=== PATIENT | female | born 2000 | race Native Hawaiian/Other Pacific Islander ===

== ENCOUNTER 2020-07-31 09:07 | Outpatient (REF) | payer OTHER, SELFPAY | END 2020-07-31 09:08 | disposition home or self-care (01) | LOC: HO.LAB 09:07 | PROVIDERS: Visit Provider Internal Medicine | DX: Z20.822 Contact with and (suspected) exposure to COVID-19 (principal) | CPT/HCPCS: 36415; C9803; U0003; U0005 ==

== ENCOUNTER 2021-07-11 00:40 | Emergency (ER) | payer OTHER, SELFPAY ==
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
[2021-07-11 00:47] VITALS: BP 112/70; PULSE 72; RESP 16; TEMP 36.6; O2SAT 99; BMI 25.4
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
--- NOTE | 2021-07-11 01:48 | PC.NURSE ---
reviewed discharged instructions with pt. pt verbalized understanding. pt able to ambulate with a steady gait with no sign of distress.
== END 2021-07-11 01:50 | disposition home or self-care (01) ==
PROVIDERS: Emergency Provider Emergency Medicine; PCP Pediatrics
DX: M54.50 Low back pain, unspecified (principal); Z79.899 Other long term (current) drug therapy
CPT/HCPCS: 72100; 99283

== ENCOUNTER 2022-06-27 20:23 | Emergency (ER) | payer OTHER, SELFPAY ==
[2022-06-27 20:25] VITALS: BP 143/73; PULSE 56; RESP 18; TEMP 36.4; O2SAT 98; BMI 32.3
--- NOTE | 2022-06-27 20:25 | ED.EYEPROB ---
HPI - Eye Problem General Chief complaint: Eye Problems Stated complaint: object in eye? Time Seen by Provider: 06/27/22 20:28 Source: patient Mode of arrival: ambulatory History of Present Illness HPI Narrative: 22-year-old female presenting to the ED complaining of left eye irritation, redness, and pain with suspected stye x2 days. Reports was applying warm compresses and popped stye yesterday however believes returned. Denies wearing glasses or contacts, vision change/loss, drainage from eye, foreign body sensation, suspected foreign body, blurry vision, fever, trauma MD chief complaint: eye redness and vision change Onset (ago): day(s) Related Data Previous Rx's Medication Instructions Recorded cyclobenzaprine 10 mg tablet 10 mg PO TID PRN muscle spasm #14 07/11/21 tabs ibuprofen 600 mg tablet 600 mg PO Q6H PRN pain #30 tabs 07/11/21 lidocaine 4 % topical patch 1 patch topical DAILY PRN pain #10 07/11/21 ea erythromycin 5 mg/gram (0.5 %) eye 1 appl ophthalmic-Left BID 7 days 06/27/22 ointment #3.5 grams Allergies Allergy/AdvReac Type Severity Reaction Status Date / Time Penicillins [PENICILLINS] Allergy Intermediate RASH Verified 07/11/21 00:47 Review of Systems Review of Systems: Constitutional: No Fever, No Chills Eyes: + Eye Pain, + Swelling, + Redness, No Foreign Body, No Discharge, No Vision Changes ENT/Mouth: No Ear Pain, No Nasal Congestion, No sore throat, No Rhinorrhea, No Swallowing Difficulty Cardiovascular: No Chest Pain, No SOB Respiratory: No Cough Gastrointestinal: No Nausea, No Vomiting, No Abdominal pain Musculoskeletal: No joint pain, No Myalgias, No Joint Swelling Skin: No Skin Lesions, No rash Neuro: No Weakness, No Numbness, No Paresthesias Yes all other systems are reviewed and are negative Constitutional: Constitutional: Reports as per [facility] Past Medical History Attestation statement: The following information was validated with the patient. Medical History No known health problems Social History Social History Patient Tobacco Use Status: Never used Tobacco Advance Directives: No Physical Exam Vital Signs: Vital Signs: Last Vital Signs Temp 97.6 F 06/27/22 20:25 Pulse 56 06/27/22 20:25 Resp 18 06/27/22 20:25 BP 143/73 H 06/27/22 20:25 Pulse Ox 98 06/27/22 20:25 O2 Del Method 06/27/22 20:25 BMI result Body Mass Index 32.3 Const: General: cooperative, healthy appearing, comfortable and no acute distress Orientation/consciousness: patient oriented x3 Limitations: no limitations HEENT: Head: Yes normal to inspection and Yes atraumatic Ears: hearing grossly normal bilaterally General nose exam: Normal external nose present Face and sinus: Yes normal facial exam Eyes: General: appearance normal, both eyes and all related structures Eyelids: Yes other (+internal style to left upper eyelid with mild ttp) Conjunctivae: conjunctival abnormal left conjunctival injection diffuse Corneas: fluorescein used (Without uptake) Pupils: Equal, round and reactive pupils present EOM: EOMs intact bilaterally Direct Ophthalmoscopy: normal light reflex and no photophobia Neck: Neck: Yes normal visual inspection, Yes no lymphadenopathy and Yes no meningeal signs Resp: Effort & Inspection: normal respiratory effort and no respiratory distress Cardio: Rate: regular rate Skin: Rashes: no rashes Wounds: no wounds Neuro: General: patient oriented x3, tone normal and no meningeal signs Cranial nerves: Yes Equal, round and reactive pupils present Gait exam (Neuro): Normal gait present Extrem: General: Yes normal to inspection Medications Administered Discontinued Medications Generic Name Dose Route Start Last Admin Trade Name Freq PRN Reason Stop Dose Admin Fluorescein Sodium 1 strip 06/27/22 20:25 06/27/22 20:35 Fluorescein Sodium Strip EYE-LEFT 06/27/22 20:26 1 strip ONCE ONE Administration Tetracaine HCl 3 drop 06/27/22 20:25 06/27/22 20:34 Tetracaine Hcl/Pf 0.5% Oph Jazmin 4 Ml Drops EYE-LEFT 06/27/22 20:26 3 drop ONCE ONE Administration Medical Decision Making Medical Decision Making MDM Narrative: 22-year-old female presenting to the ED complaining of left eye irritation, redness, and pain with suspected stye x2 days. On exam vital signs stable, NAD, nontoxic appearing, left conjunctival injection noted with upper eyelid stye. No fluorescein uptake or evidence of corneal ulceration. No evidence of periorbital or orbital cellulitis, EOMs intact without pain. Concern for stye. No evidence of globe rupture Plan: Visual acuity, florescein staining, erythromycin ointment, PCP follow-up Differential Diagnosis Differential Diagnoses: The differential diagnosis associated with the presentation includes As above Prescription Management I considered prescription management with: Pain Medication and Antibiotic Discharge Plan Discharge Clinical Impression: Hordeolum Patient Disposition: Home, Self-Care Instructions: Stshanda (ED) Additional Instructions: Continue to apply warm compresses at home use erythromycin ointment as prescribed if symptoms worsen, you develop vision loss, increasing swelling, pain or drainage from eye return to ED follow up with eye doctor Prescriptions: New erythromycin 5 mg/gram (0.5 %) ointment 1 appl ophthalmic-Left BID 7 Days Qty: 3.5 0RF No Action cyclobenzaprine 10 mg tablet 10 mg PO TID PRN (Reason: muscle spasm) Qty: 14 0RF lidocaine 4 % adhesive patch,medicated 1 patch topical DAILY PRN (Reason: pain) Qty: 10 0RF Rx Instructions: may leave on for up to 12 hrs ibuprofen 600 mg tablet 600 mg PO Q6H PRN (Reason: pain) Qty: 30 0RF Referrals: Driss Vieyra [Physician] - Princess Hammer MD [Physician] - Wallace Shaw MD [Physician] - Mk Lee OD [Physician] - Interventions: ED Discharge Assessment Last Done: 06/27/22 20:39
[2022-06-27] MEDS: Tetracaine HCl/PF 0.5% Oph Sol 4 ML DROPS 3 DROP EYE-LEFT (20:34)
[2022-06-27] MEDS: Fluorescein Sodium STRIP 1 STRIP EYE-LEFT (20:35)
== END 2022-06-27 20:42 | disposition home or self-care (01) ==
LOC: HO.ED 20:40
PROVIDERS: Emergency Provider Emergency Medicine; PCP Pediatrics
DX: H00.014 Hordeolum externum left upper eyelid (principal)
CPT/HCPCS: 99282; 99283

== ENCOUNTER 2022-09-18 13:42 | Emergency (ER) | payer OTHER, SELFPAY ==
--- NOTE | 2022-09-18 13:52 | ED_ITS ---
HPI - General Adult General Chief complaint: Ear Problems <WENDI Suggs - Last Filed: 09/18/22 13:53> Stated complaint: ear pain and sore throat <WENDI Suggs Last Filed: 09/18/22 13:53> Time Seen by Provider: 09/18/22 15:03 <WENDI Suggs - Last Filed: 09/18/22 13:53> Source: patient <WENDI Romero Last Filed: 09/18/22 17:13> Mode of arrival: ambulatory <WENDI Romero Last Filed: 09/18/22 17:13> History of Present Illness HPI narrative: 22-year-old female with no significant past medical history presenting to ED complaining of sore throat x2 days and left ear pain since this morning. Denies fever, chills, cough, difficulty/inability to swallow, hearing loss/drainage from ear, sick contacts, recent travel <WENDI Romero Last Filed: 09/18/22 17:13> Onset (ago): day(s) <WENDI Romero Last Filed: 09/18/22 17:13> Related Data Home medications: Previous Rx's Medication Instructions Recorded cyclobenzaprine 10 mg tablet 10 mg PO TID PRN muscle spasm #14 07/11/21 tabs ibuprofen 600 mg tablet 600 mg PO Q6H PRN pain #30 tabs 07/11/21 lidocaine 4 % topical patch 1 patch topical DAILY PRN pain #10 07/11/21 ea erythromycin 5 mg/gram (0.5 %) eye 1 appl ophthalmic-Left BID 7 days 06/27/22 ointment #3.5 grams cefdinir 300 mg capsule 300 mg PO BID 7 days #14 caps 09/18/22 <WENDI Suggs Last Filed: 09/18/22 13:53> Allergies/adverse reactions: Allergies Allergy/AdvReac Type Severity Reaction Status Date / Time Penicillins [PENICILLINS] Allergy Intermediate RASH Verified 07/11/21 00:47 <WENDI Suggs Last Filed: 09/18/22 13:53> Review of Systems Review of Systems: Constitutional: No Fever, No Chills ENT/Mouth: + Ear Pain, No Nasal Congestion, No Sinus Pain, No Hoarseness, + sore throat, No Rhinorrhea, No Swallowing Difficulty Cardiovascular: No Chest Pain, No SOB Respiratory: No Cough, No Sputum Gastrointestinal: No Nausea, No Vomiting, No Diarrhea, No Constipation, No Abdominal pain Genitourinary: No Dysuria, No Urinary Frequency, No Flank Pain Musculoskeletal: No joint pain, No Myalgias, No Joint Swelling Skin: No Skin Lesions, No rash Neuro: No Weakness <WENDI Romero - Last Filed: 09/18/22 17:13> Yes all other systems are reviewed and are negative <WENDI Romero - Last Filed: 09/18/22 17:13> Constitutional: Constitutional: Reports as per HPI <WENDI Romero - Last Filed: 09/18/22 17:13> [facility] Past Medical History Attestation statement: The following information was validated with the patient. <WENDI Romero Last Filed: 09/18/22 17:13> Medical History: Medical History No known health problems <WENDI Suggs - Last Filed: 09/18/22 13:53> Social History Social History: Social History Patient Tobacco Use Status: Never used Tobacco Advance Directives: No Advance Directives Information Provided: No <WENDI Suggs Last Filed: 09/18/22 13:53> Physical Exam ED Vital Signs: Vital Signs - 24 hr 09/18/22 13:53 Temperature 97 F Pulse Rate 91 Respiratory Rate 16 Blood Pressure 123/70 Pulse Oximetry 100 Oxygen Delivery Method Room Air BMI result Body Mass Index 31.8 <WENDI Suggs - Last Filed: 09/18/22 13:53> Vital Signs - 24 hr 09/18/22 13:53 Temperature 97 F Pulse Rate 91 Respiratory Rate 16 Blood Pressure 123/70 Pulse Oximetry 100 Oxygen Delivery Method Room Air BMI result Body Mass Index 31.8 <WENDI Romero Last Filed: 09/18/22 17:13> Const General: cooperative, healthy appearing, no acute distress, alert and awake <WENDI Romero Last Filed: 09/18/22 17:13> Orientation/consciousness: patient oriented x3 <WENDI Romero - Last Filed: 09/18/22 17:13> Limitations: no limitations <WENDI Romero - Last Filed: 09/18/22 17:13> HENMT Head: Yes normal to inspection and Yes atraumatic <WENDI Romero - Last Filed: 09/18/22 17:13> Ears: hearing grossly normal bilaterally, external ears normal, mastoids normal and TM abnormal erythematous on the left and with fluid behind the TM on the left <WENDI Romero - Last Filed: 09/18/22 17:13> General nose exam: Normal external nose present <WENDI Romero - Last Filed: 09/18/22 17:13> Face and sinus: Yes normal facial exam <WENDI Romero - Last Filed: 09/18/22 17:13> Mouth: Normal oral and palatal mucosa present <WENDI Romero - Last Filed: 09/18/22 17:13> Throat: Yes tonsils normal, Yes uvula midline, No peritonsillar mass, Yes posterior oropharynx abnormal (Mildly erythematous), No uvula laterally displaced and No uvular edema <WENDI Romero - Last Filed: 09/18/22 17:13> Eyes General: appearance normal, both eyes and all related structures <WENDI Romero - Last Filed: 09/18/22 17:13> EOM: EOMs intact bilaterally <WENDI Romero - Last Filed: 09/18/22 17:13> Neck Other: + left-sided submandibular lymphadenopathy <WENDI Romero - Last Filed: 09/18/22 17:13> Neck: Yes normal visual inspection and Yes no meningeal signs <WENDI Romero - Last Filed: 09/18/22 17:13> Resp Effort & Inspection: normal respiratory effort and no respiratory distress <WENDI Romero - Last Filed: 09/18/22 17:13> Auscultation: clear to auscultation bilaterally <WENDI Romero - Last Filed: 09/18/22 17:13> Cardio Rate: regular rate <WENDI Romero Last Filed: 09/18/22 17:13> Heart sounds: S1 normal heart sound present and S2 normal heart sound present <WENDI Molina Last Filed: 09/18/22 17:13> Skin Rashes: no rashes <WENDI Romero Last Filed: 09/18/22 17:13> Wounds: no wounds <WENDI Romero Last Filed: 09/18/22 17:13> Neuro General: patient oriented x3, tone normal and no meningeal signs <WENDI Romero Last Filed: 09/18/22 17:13> Gait exam (Neuro): Normal gait present <WENDI Romero Last Filed: 09/18/22 17:13> Extrem General: Yes normal to inspection <WENDI Romero Last Filed: 09/18/22 17:13> Course Course Course Narrative: RME performed by Magdalena Jackson PA-C. Patient is a 22 year old assigned female at presenting to the emergency department with left ear pain and a sore throat. Swabs ordered. Patient placed back in the waiting room pending room availability and results. <WENDI Suggs Last Filed: 09/18/22 13:53> RME performed by Magdalena Jackson PA-C. Patient is a 22 year old assigned female at presenting to the emergency department with left ear pain and a sore throat. Swabs ordered. Patient placed back in the waiting room pending room availability and results. -COVID/influenza/RSV and rapid strep negative Results discussed with patient including worrisome signs and symptoms and strict return precautions, and when to return to the emergency department. They verbalized understanding and feel safe for discharge at this time. <WENDI Romero Last Filed: 09/18/22 17:13> Medical Decision Making Medical Decision Making MDM Narrative: 22-year-old female with no significant past medical history presenting to ED complaining of sore throat x2 days and left ear pain since this morning. On exam vital signs stable, NAD, nontoxic appearing, left TM with fluid and erythema. Mild posterior or pharyngeal erythema, uvula midline, talking complete sentences, no evidence of LOGGING SUPERINTENDENT. Mastoids WNL. Concern for otitis media. Low suspicion for otitis externa, mastoiditis Plan: COVID/flu/RSV and rapid strep test Please refer to course for remaining clinical decision making, interpretation of labs/imaging results, and discussions with consultants and/or family members. <WENDI Romero - Last Filed: 09/18/22 17:13> Differential Diagnosis Differential Diagnoses: The differential diagnosis associated with the presentation includes <WENDI Romero - Last Filed: 09/18/22 17:13> As above <WENDI Romero - Last Filed: 09/18/22 17:13> Admission/Observation Consideration of admission/observation: Escalation of care including admission/observation considered <WENDI Romero - Last Filed: 09/18/22 17:13> Lab Data MDM Lab Attestation statement: I reviewed the patient's lab results. <WENDI Romero Last Filed: 09/18/22 17:13> Labs: Lab Results 09/18/22 09/18/22 Range/Units 13:56 13:56 Influenza Type A (PCR) NEGATIVE (Negative) Influenza Type B (PCR) NEGATIVE (Negative) RSV RNA Qual (PCR) NEGATIVE (Negative) SARS-CoV-2 RNA (RT-PCR) NEGATIVE (Negative) S. pyogenes GrpA KORI Negative (Negative) <WENDI Suggs - Last Filed: 09/18/22 13:53> Lab Results 09/18/22 09/18/22 Range/Units 13:56 13:56 Influenza Type A (PCR) NEGATIVE (Negative) Influenza Type B (PCR) NEGATIVE (Negative) RSV RNA Qual (PCR) NEGATIVE (Negative) SARS-CoV-2 RNA (RT-PCR) NEGATIVE (Negative) S. pyogenes GrpA KORI Negative (Negative) <WENDI Romero Last Filed: 09/18/22 17:13> Radiology Impression Discussion of test interpretation with radiology: I have reviewed the radiologist's reading. <WENDI Romero Last Filed: 09/18/22 17:13> External Record Review External record reviewed: Inpatient record, Office record, Outpatient record, Prior outpatient labs, Prior outpatient radiology, Primary care record and Outside ED record <WENDI Romero - Last Filed: 09/18/22 17:13> Discharge Plan Discharge Clinical Impression: Otitis media <WENDI Suggs - Last Filed: 09/18/22 13:53> Patient Disposition: Home, Self-Care <WENDI Suggs - Last Filed: 09/18/22 13:53> Instructions: Ear Infection (ED) <WENDI Suggs - Last Filed: 09/18/22 13:53> Additional Instructions: You have an inner ear infection. Cefdinir is an antibiotic please take as prescribed You test negative for COVID, flu, RSV, and rapid strep Take Tylenol and Motrin Follow-up with her doctor If symptoms persist or worsen return to the ED <WENDI Suggs - Last Filed: 09/18/22 13:53> Prescriptions: New cefdinir 300 mg capsule 300 mg PO BID 7 Days Qty: 14 0RF No Action cyclobenzaprine 10 mg tablet 10 mg PO TID PRN (Reason: muscle spasm) Qty: 14 0RF lidocaine 4 % adhesive patch,medicated 1 patch topical DAILY PRN (Reason: pain) Qty: 10 0RF Rx Instructions: may leave on for up to 12 hrs ibuprofen 600 mg tablet 600 mg PO Q6H PRN (Reason: pain) Qty: 30 0RF erythromycin 5 mg/gram (0.5 %) ointment 1 appl ophthalmic-Left BID 7 Days Qty: 3.5 0RF <WENDI Suggs - Last Filed: 09/18/22 13:53> Referrals: Anne Marie Chatman MD [Primary Care Provider] - 3 days <WENDI Suggs - Last Filed: 09/18/22 13:53> Interventions: ED Discharge Assessment Last Done: 09/18/22 16:29 <WENDI Suggs - Last Filed: 09/18/22 13:53> Discharge Date/Time: 09/18/22 16:29 <WENDI Suggs - Last Filed: 09/18/22 13:53>
[2022-09-18 13:53] VITALS: BP 123/70; PULSE 91; RESP 16; TEMP 36.1; O2SAT 100; BMI 31.8
[2022-09-18 14:12] LABS: IDNOW Serial# 6674DD1D
[2022-09-18 14:13] LABS: Strep A Nucleic Acid Negative (Negative)
[2022-09-18 14:54] LABS: Influenza A PCR NEGATIVE (Negative); Influenza B PCR NEGATIVE (Negative); Resp Syncy Virus RNA Qual PCR NEGATIVE (Negative); SARS COV2 PCR INHOUSE NEGATIVE (Negative)
== END 2022-09-18 16:29 | disposition home or self-care (01) ==
PROVIDERS: Physician Assistant Medical; Emergency Provider Emergency Medicine; PCP Pediatrics
DX: H66.92 Otitis media, unspecified, left ear (principal); J02.8 Acute pharyngitis due to other specified organisms; Z20.822 Contact with and (suspected) exposure to COVID-19; Z20.828 Contact with and (suspected) exposure to other viral communicable diseases; Z79.899 Other long term (current) drug therapy
CPT/HCPCS: 0241U; 87651; 99283

== ENCOUNTER 2022-10-01 00:50 | Emergency (ER) | payer OTHER, SELFPAY ==
--- NOTE | 2022-10-01 01:02 | ED.GENADULT ---
HPI - General Adult General Chief complaint: General Medical Stated complaint: pain when swallowing, here recently Time Seen by Provider: 10/01/22 00:54 Source: patient Mode of arrival: ambulatory History of Present Illness HPI narrative: 22-year-old female presents with complaints of feeling something inside on the left side of her throat?. She denies swallowing any foreign objects, denies any fevers/chills/dental pain/ear pain. Related Data Previous Rx's Medication Instructions Recorded cyclobenzaprine 10 mg tablet 10 mg PO TID PRN muscle spasm #14 07/11/21 tabs ibuprofen 600 mg tablet 600 mg PO Q6H PRN pain #30 tabs 07/11/21 lidocaine 4 % topical patch 1 patch topical DAILY PRN pain #10 07/11/21 ea erythromycin 5 mg/gram (0.5 %) eye 1 appl ophthalmic-Left BID 7 days 06/27/22 ointment #3.5 grams cefdinir 300 mg capsule 300 mg PO BID 7 days #14 caps 09/18/22 Allergies Allergy/AdvReac Type Severity Reaction Status Date / Time Penicillins [PENICILLINS] Allergy Intermediate RASH Verified 07/11/21 00:47 Review of Systems Review of Systems: Pertinent positives and negatives as stated in the HPI. [facility] Past Medical History Source: nursing notes reviewed Medical History No known health problems Social History Social History Alcohol intake: current Alcohol intake frequency: holidays/special occasions only Patient Tobacco Use Status: Never used Tobacco Smoked in Last 30 Days: No Use of substances other than those prescribed or required for medical reasons: No Advance Directives: No Advance Directives Information Provided: Yes Patient : No Physical Exam ED Vital Signs: Vital Signs - 24 hr 10/01/22 01:03 10/01/22 01:07 Temperature 98.4 F 98.4 F Pulse Rate 58 58 Respiratory Rate 14 14 Blood Pressure 107/71 107/71 Pulse Oximetry 99 99 Oxygen Delivery Method Room Air Room Air BMI result Body Mass Index 25.4 VITAL SIGNS: Reviewed. GENERAL: Well developed, well nourished, in no acute distress. HEAD: Normocephalic/atraumatic EYES: PERRLA, EOMI EARS: Ext canals without abnormality, TMs non-bulging and non-erythematous NOSE: Nares patent bilateral OROPHARYNX: no oral lesions noted, posterior pharynx clear, there are no dental issues, uvula is midline without swelling and no tonsillar enlargement, no trismus NECK: Supple, no adenopathy LUNGS: Normal breath sounds. No adventitious sounds or accessory muscle use. SpO2<99> CARDIOVASCULAR: Regular rate and rhythm without noted murmurs ABDOMEN: Soft, non-tender, non-distended with bowel sounds. MUSCULOSKELETAL: No tenderness, deformities, or effusions noted on gross inspection. EXTREMITIES: No cyanosis, clubbing or edema. SKIN: Inspection of the skin reveals no rashes NEUROLOGIC: Alert and oriented x 4. Strength and sensation to light touch were grossly intact x 4. Medications Administered Discontinued Medications Generic Name Dose Route Start Last Admin Trade Name Freq PRN Reason Stop Dose Admin Acetaminophen 975 mg 10/01/22 01:02 10/01/22 01:10 Acetaminophen 325 Mg Tablet PO 10/01/22 01:03 975 mg ONCE ONE Administration Benzocaine 1 lozenge 10/01/22 01:02 10/01/22 01:12 Throat Lozenge, Medicated Lozenge MUCOUS MEM 10/01/22 01:03 1 lozenge ONCE ONE Administration Ibuprofen 400 mg 10/01/22 01:02 10/01/22 01:11 Ibuprofen 400 Mg Tablet PO 10/01/22 01:03 400 mg ONCE ONE Administration Medical Decision Making Medical Decision Making [facility] Narrative: This is a 22-year-old female with history and clinical presentation to suggest some minor irritation of the inner lateral throat although there is no evidence to suggest dental or year etiology, there are no palpable lymph nodes, there is no evidence of sub mandibular swelling, no trismus, no evidence to suggest peritonsillar abscess. All findings were discussed with the patient at bedside, she was reassured and provided with combination analgesics as well as Cepacol. I discussed with the patient my reluctance to refer her to an ear nose and throat physician as there were no clinical findings to suggest need for this. I did recommend that she utilize saline gargles as well as [id number] Cepacol while awaiting an appointment with her primary care provider. Differential Diagnosis Please see the discussion above Discharge Plan Discharge Clinical Impression: Throat discomfort Patient Disposition: Home, Self-Care Instructions: Dysphagia (ED) Additional Instructions: 1. Recommend [id number] Tylenol/ibuprofen as needed for pain control. I also recommend [id number] Cepacol for additional symptom relief 2. I also recommend saltwater gargles, gargle for 5-10 minutes, 3 to 4 times a day. 3. Follow-up with your primary care provider next 1-2 days. Return to the ER for any worsening symptoms. Prescriptions: No Action cyclobenzaprine 10 mg tablet 10 mg PO TID PRN (Reason: muscle spasm) Qty: 14 0RF lidocaine 4 % adhesive patch,medicated 1 patch topical DAILY PRN (Reason: pain) Qty: 10 0RF Rx Instructions: may leave on for up to 12 hrs ibuprofen 600 mg tablet 600 mg PO Q6H PRN (Reason: pain) Qty: 30 0RF erythromycin 5 mg/gram (0.5 %) ointment 1 appl ophthalmic-Left BID 7 Days Qty: 3.5 0RF cefdinir 300 mg capsule 300 mg PO BID 7 Days Qty: 14 0RF
[2022-10-01 01:03] VITALS: BP 107/71; PULSE 58; RESP 14; TEMP 36.9; O2SAT 99; BMI 25.4
[2022-10-01 01:07] VITALS: BP 107/71; PULSE 58; RESP 14; TEMP 36.9; O2SAT 99
[2022-10-01] MEDS: Acetaminophen 325 MG TABLET 975 MG PO (01:10)
[2022-10-01] MEDS: Ibuprofen 400 MG TABLET PO (01:11)
[2022-10-01] MEDS: Throat Lozenge, Medicated LOZENGE 1 LOZENGE MUCOUS MEM (01:12)
== END 2022-10-01 01:43 | disposition home or self-care (01) ==
PROVIDERS: Emergency Provider Student in an Organized Health Care Education/Training Program
DX: J02.9 Acute pharyngitis, unspecified (principal)
CPT/HCPCS: 99283; 99284

== ENCOUNTER 2022-11-19 17:47 | Emergency (ER) | payer OTHER, SELFPAY ==
[2022-11-19 18:11] VITALS: BP 132/66; PULSE 82; RESP 16; TEMP 36.6; O2SAT 99; BMI 32.0
--- NOTE | 2022-11-19 18:16 | ED.GENADULT ---
HPI - General Adult General Chief complaint: Eye Problems Stated complaint: Right eye pain Time Seen by Provider: 11/19/22 18:16 Source: patient, RN notes reviewed and old records reviewed Mode of arrival: ambulatory Limitations: no limitations History of Present Illness HPI narrative: 22-year-old female presents for evaluation of bilateral eye burning She states her symptoms started 2 days ago. She states that her right eye seems to be burning more than left Denies getting anything in her eyes. She states that her younger brother had pinkeye in the patient's son had pinkeye Denies any blurry vision The patient does not wear contacts or glasses Related Data Previous Rx's Medication Instructions Recorded cyclobenzaprine 10 mg tablet 10 mg PO TID PRN muscle spasm #14 07/11/21 tabs ibuprofen 600 mg tablet 600 mg PO Q6H PRN pain #30 tabs 07/11/21 lidocaine 4 % topical patch 1 patch topical DAILY PRN pain #10 07/11/21 ea erythromycin 5 mg/gram (0.5 %) eye 1 appl ophthalmic-Left BID 7 days 06/27/22 ointment #3.5 grams cefdinir 300 mg capsule 300 mg PO BID 7 days #14 caps 09/18/22 tobramycin 0.3 % eye drops 2 drp ophthalmic (eye) Q4H 7 days 11/19/22 #5 mL Allergies Allergy/AdvReac Type Severity Reaction Status Date / Time Penicillins [PENICILLINS] Allergy Intermediate RASH Verified 11/19/22 18:11 Review of Systems Eyes: Eyes: Denies blurry vision, Denies exophthalmos, Reports eye discharge, Reports irritation, Reports itchy eyes and Reports eye pain Allergic/Immunologic: Allergic/Immunologic: Reports itchy eyes PMFSH Past Medical History Medical History No known health problems Social History Social History Alcohol intake: current Alcohol intake frequency: holidays/special occasions only Patient Tobacco Use Status: Never used Tobacco Physical Exam ED Vital Signs: Vital Signs - 24 hr 11/19/22 18:11 Temperature 97.8 F Pulse Rate 82 Respiratory Rate 16 Blood Pressure 132/66 Pulse Oximetry 99 Oxygen Delivery Method Room Air BMI result Body Mass Index 32.0 Const General: healthy appearing, comfortable, no acute distress, alert and awake Nutritional Appearance: well nourished Orientation/consciousness: patient oriented x3 HENMT Head: Yes normocephalic and Yes atraumatic Eyes Other: Patient has minimal conjunctival injection bilaterally. No obvious foreign body on exam. Alignment and Position: alignment normal Periorbital: periorbital findings normal Eyelids: Yes eyelids normal Pupils: Equal, round and reactive pupils present Resp Effort & Inspection: normal respiratory effort, able to speak in complete sentences and not labored Skin General skin exam: no rashes or lesions noted and elasticity normal Neuro General: patient oriented x3 Cranial nerves: Yes Equal, round and reactive pupils present and Yes Bilaterally intact EOM present Cognition (Neuro): normal cognition Extrem Other: Moving all extremities well without any obvious deformities Medical Decision Making Medical Decision Making MDM Narrative: 22-year-old female has burning, watery eyes with discharge after her son and younger brother both had pinkeye. We will treat as bacterial conjunctivitis. No risk factors for Pseudomonas Differential Diagnosis Conjunctivitis Viral conjunctivitis Iritis Foreign body Discharge Plan Discharge Clinical Impression: Bacterial conjunctivitis Patient Disposition: Home, Self-Care Instructions: Conjunctivitis (ED) Additional Instructions: Used tobramycin eyedrops as directed for the next 7 days Wash her hands frequently Return for new or worsening symptoms Prescriptions: New tobramycin 0.3 % drops 2 drp ophthalmic (eye) Q4H 7 Days Qty: 5 0RF No Action cyclobenzaprine 10 mg tablet 10 mg PO TID PRN (Reason: muscle spasm) Qty: 14 0RF lidocaine 4 % adhesive patch,medicated 1 patch topical DAILY PRN (Reason: pain) Qty: 10 0RF Rx Instructions: may leave on for up to 12 hrs ibuprofen 600 mg tablet 600 mg PO Q6H PRN (Reason: pain) Qty: 30 0RF erythromycin 5 mg/gram (0.5 %) ointment 1 appl ophthalmic-Left BID 7 Days Qty: 3.5 0RF cefdinir 300 mg capsule 300 mg PO BID 7 Days Qty: 14 0RF Stand Alone Forms: Work/School Release
== END 2022-11-19 18:27 | disposition home or self-care (01) ==
LOC: HO.ED 18:22
PROVIDERS: Emergency Provider Internal Medicine; PCP Pediatrics
DX: H10.9 Unspecified conjunctivitis (principal); H57.13 Ocular pain, bilateral
CPT/HCPCS: 99282; 99283

== ENCOUNTER 2023-01-22 07:55 | Emergency (ER) | payer MEDICAID, SELFPAY ==
[2023-01-22 07:59] VITALS: BP 112/55; PULSE 81; RESP 16; TEMP 36.7; O2SAT 97; BMI 32.6
--- NOTE | 2023-01-22 09:26 | ED_ITS ---
HPI - Allergic Reaction General Chief complaint: Allergic Reaction Stated complaint: Bit By Ant ?Allerrgic Reaction Time Seen by Provider: 01/22/23 09:15 Source: patient Mode of arrival: ambulatory Limitations: no limitations History of Present Illness HPI narrative: 22yoF presenting to the ER with complaints of a possible allergic reaction to her right foot after she sustained an ant bite yesterday night. She reports that she was bit by an ant and she had some warm sensation to her body and some tingling to her throat. She reports she still has some discomfort to her throat. Otherwise she does not have any other symptoms. She does not actually even have a noticeable bite. She denies any fevers, chills, nasal congestion, trouble swallowing or breathing, wheezing, cough, chest pain or shortness of breath, nausea vomiting, abdominal pain, swelling of the face/ lips or eyes or tongue, drooling, change in her voice, rashes anywhere else or any other symptoms complaints or concerns at this time. MD complaint: allergic reaction Onset (ago): day(s) ( Last night) Exposure: insect bite Symptoms: other (throat discomfort ) Severity: mild Treatment prior to arrival: none Previous Allergic Reaction History: none Related Data Previous Rx's Medication Instructions Recorded cyclobenzaprine 10 mg tablet 10 mg PO TID PRN muscle spasm #14 07/11/21 tabs ibuprofen 600 mg tablet 600 mg PO Q6H PRN pain #30 tabs 07/11/21 lidocaine 4 % topical patch 1 patch topical DAILY PRN pain #10 07/11/21 ea erythromycin 5 mg/gram (0.5 %) eye 1 appl ophthalmic-Left BID 7 days 06/27/22 ointment #3.5 grams cefdinir 300 mg capsule 300 mg PO BID 7 days #14 caps 09/18/22 tobramycin 0.3 % eye drops 2 drp ophthalmic (eye) Q4H 7 days 11/19/22 #5 mL Allergies Allergy/AdvReac Type Severity Reaction Status Date / Time Penicillins [PENICILLINS] Allergy Intermediate RASH Verified 01/22/23 07:59 Review of Systems Review of Systems: Constitutional : No Fever, No Chills , no body aches, no recent illness Head/Face: No facial swelling, No facial redness ENT/Mouth : + throat discomfort, No oral/throat swelling, No Hoarseness, No Swallowing Difficulty Eyes: No Eye Pain, No Swelling, No Redness Cardiovascular : No Chest Pain, No SOB, No palpitations Respiratory : No Cough, No Sputum, No Wheezing, No Smoke Exposure, No Dyspnea Gastrointestinal : No Nausea, No Vomiting, No Diarrhea, No abdominal Pain Genitourinary : No Dysuria, No Urinary Frequency, No Hematuria Musculoskeletal : No joint pain, No Myalgias, No Joint Swelling Skin : No Skin Lesions, positive rash Neuro : No Weakness, No Numbness, No Headache, No dizziness, No tingling Psych : No Anxiety/Panic, No Depression Heme/Lymph: No Bruising, No Lymphadenopathy Endocrine : No Polyuria, No Polydipsia Denies changes in lotions or detergents. Denies new medications or any changes in medications. Denies drainage from rash. Denies any recent sick contacts or recent travel. Yes all other systems are reviewed and are negative [facility] Past Medical History Attestation statement: The following information was validated with the patient. Source: old records reviewed and nursing notes reviewed Medical History No known health problems Social History Social History Alcohol intake: current Alcohol intake frequency: holidays/special occasions only Patient Tobacco Use Status: Never used Tobacco Advance Directives: No Advance Directives Information Provided: No Physical Exam ED Vital Signs: Vital Signs - 24 hr 01/22/23 07:59 Temperature 98.1 F Pulse Rate 81 Respiratory Rate 16 Blood Pressure 112/55 L Pulse Oximetry 97 Oxygen Delivery Method Room Air BMI result Body Mass Index 32.6 Vital signs have been reviewed and all within normal limits Appearance: Alert. Oriented X3. No acute distress. No Angioedema noted. Head: Normal external exam. Normocephalic. Atraumatic. Eyes: PERRLA. EOMI. Conjunctiva and sclera normal. Eyelids normal. ENT: EAC normal. TM's Normal. Pharynx normal. Uvula midline. Moist mucous membranes. No lesions/ulcerations or masses noted on the tongue. Normal voice. No trismus noted. No drooling noted. No muffled voice noted. Neck: Normal inspection. Neck supple. FROM. No adenopathy. Thyroid Normal. No meningeal signs. CVS: Normal heart rate and rhythm. Heart sound normal. Pulses normal throughout. No murmurs/rales/gallops. Respiratory: No respiratory distress. Painless inspiration. Breath sounds normal. No wheezes/rales/rhonchi noted. Chest nontender. No accessory muscle usage noted or decreased air movement noted. Abdomen: Soft and nontender. Back: Full range of motion noted. Nontender. Skin: Skin warm and dry. Normal skin color. Normal skin turgor. No rashes/lesions/lacerations noted. Extremities: Extremities exhibit normal range of motion and nontender. Neuro: Oriented X 3. No motor deficit. No sensory deficit. Reflexes normal. Normal steady gait. No focal neuro deficits noted. CN's II-XII intact bilaterally? Vascular: + radial pulses. Normal cap refill. No cyanosis noted to upper extremity nails Course Course Course Narrative: On exam patient does not actually have an insect bite or any signs of allergic reaction. Not anaphylaxis. Not sepsis. Not infectious etiology. She does complain of some throat discomfort therefore will obtain a strep swab for possible bacterial pharyngitis. Otherwise uvula is midline. No trismus /drooling/ stridor. No erythema is noted. No exudate is noted. Normal voice. Patient tolerating secretions well. Lungs clear to auscultation. No signs of angioedema, stridor, airway compromise, or anaphylactic shock. Not c/w SSSS/ TEN/ Eryth multiforme/ Carvalho Johnsons. If strep negative will d/c home with return Precautions and instructions follow-up with PCP. Patient understands agrees with this plan. Medical Decision Making Lab Data Labs: Lab Results 01/22/23 Range/Units 09:27 S. pyogenes GrpA KORI Negative (Negative) Discharge Plan Discharge Clinical Impression: Insect bite, Throat discomfort Patient Disposition: Home, Self-Care Instructions: Insect Bite or Sting (ED) Prescriptions: No Action cyclobenzaprine 10 mg tablet 10 mg PO TID PRN (Reason: muscle spasm) Qty: 14 0RF lidocaine 4 % adhesive patch,medicated 1 patch topical DAILY PRN (Reason: pain) Qty: 10 0RF Rx Instructions: may leave on for up to 12 hrs ibuprofen 600 mg tablet 600 mg PO Q6H PRN (Reason: pain) Qty: 30 0RF erythromycin 5 mg/gram (0.5 %) ointment 1 appl ophthalmic-Left BID 7 Days Qty: 3.5 0RF cefdinir 300 mg capsule 300 mg PO BID 7 Days Qty: 14 0RF tobramycin 0.3 % drops 2 drp ophthalmic (eye) Q4H 7 Days Qty: 5 0RF Referrals: Physician,None [Primary Care Provider] - (your pcp as needed)
[2023-01-22 09:54] LABS: IDNOW Serial# 6674DD1D; Strep A Nucleic Acid Negative (Negative)
== END 2023-01-22 10:12 | disposition home or self-care (01) ==
PROVIDERS: Physician Assistant Medical; Emergency Provider Emergency Medicine Emergency Medical Services
DX: J02.9 Acute pharyngitis, unspecified (principal); S90.861A Insect bite (nonvenomous), right foot, initial encounter; W57.XXXA Bitten or stung by nonvenomous insect and other nonvenomous arthropods, initial encounter; Y93.9 Activity, unspecified; Y92.9 Unspecified place or not applicable; Y99.9 Unspecified external cause status
CPT/HCPCS: 87651; 99283; 99284

== ENCOUNTER 2023-04-09 14:09 | Emergency (ER) | payer MEDICAID, SELFPAY ==
--- NOTE | ~2023-04-09 | XR_ITS ---
EXAMINATION: XR CHEST CLINICAL INFORMATION: Cough COMPARISON: None available. TECHNIQUE: 2 views of the chest were obtained. FINDINGS: No significant abnormality is noted involving the heart, lungs, mediastinum, bony thorax or soft tissues. XR/XR chest 2V IMPRESSION: Unremarkable examination.
[2023-04-09 14:11] VITALS: BP 129/60; PULSE 79; RESP 14; TEMP 36.8; O2SAT 98; BMI 33.4
--- NOTE | 2023-04-09 14:12 | ED_ITS ---
HPI - General Adult General Chief complaint: Abdominal Pain Stated complaint: Cough, pain left abdomen Time Seen by Provider: 04/09/23 15:44 Source: patient Mode of arrival: ambulatory Limitations: no limitations History of Present Illness HPI narrative: 22-year-old female previously healthy here with complaints of dry cough, sore throat and congestion for 1 week. Patient denies recent sick contacts or travel. She denies any difficulty breathing, chest pain, fevers, chills, headache, neck pain, neck stiffness, vomiting or diarrhea. Patient also complaining of left lower abdominal pain which she has had for 2 weeks. She denies any associated urinary symptoms, fevers, vomiting, diarrhea, vaginal discharge. She has no concern for STD. Denies any new sexual partners. Her last menstrual cycle was 2 weeks ago. Related Data Previous Rx's Medication Instructions Recorded cyclobenzaprine 10 mg tablet 10 mg PO TID PRN muscle spasm #14 07/11/21 tabs ibuprofen 600 mg tablet 600 mg PO Q6H PRN pain #30 tabs 07/11/21 lidocaine 4 % topical patch 1 patch topical DAILY PRN pain #10 07/11/21 ea erythromycin 5 mg/gram (0.5 %) eye 1 appl ophthalmic-Left BID 7 days 06/27/22 ointment #3.5 grams cefdinir 300 mg capsule 300 mg PO BID 7 days #14 caps 09/18/22 tobramycin 0.3 % eye drops 2 drp ophthalmic (eye) Q4H 7 days 11/19/22 #5 mL Allergies Allergy/AdvReac Type Severity Reaction Status Date / Time Penicillins [PENICILLINS] Allergy Intermediate RASH Verified 04/09/23 14:13 Review of Systems Review of Systems: Yes all other systems are reviewed and are negative Constitutional: Constitutional: Reports no additional constitutional complaints, Denies body ache(s), Denies chills, Denies fever(s), Denies headache(s) and Denies weakness Eyes: Eyes: Reports no additional eye complaints and Denies change in vision ENT: Reports system reviewed and no additional complaints, except as documented, Denies dizziness, Denies headache(s), Reports nasal congestion, Denies nasal discharge, Denies neck pain and Reports sore throat Cardiovascular: Cardiovascular: Reports no additional cardiovascular complaints, Denies chest pain, Denies leg edema and Denies dyspnea Respiratory: Respiratory: Reports no additional respiratory complaints, Reports cough and Denies dyspnea Gastrointestinal: Gastrointestinal: Reports no additional gastrointestinal complaints, Reports abdominal pain, Denies diarrhea, Denies nausea and Denies vomiting Genitourinary: Genitourinary: Reports no additional female genitourinary complaints and Denies urinary incontinence Musculoskeletal: Musculoskeletal: Reports no additional musculoskeletal complaints, Denies back pain, Denies arthralgias, Denies joint swelling, Denies neck pain, Denies numbness and Denies tingling Integumentary/Breasts: Skin/Breast: Reports system reviewed and no additional complaints, except as docu and Denies rash Neurologic: Reports system reviewed and no additional complaints, except as documented, Denies Abnormal speech present, Denies dizziness, Denies headache(s), Denies numbness, Denies tingling and Denies weakness PMFSH Past Medical History Attestation statement: The following information was validated with the patient. Source: old records reviewed and nursing notes reviewed Medical History No known health problems Social History Social History Alcohol intake: current Alcohol intake frequency: holidays/special occasions only Patient Tobacco Use Status: Never used Tobacco Advance Directives: No Advance Directives Information Provided: No Physical Exam ED Vital Signs: Vital Signs - 24 hr 04/09/23 14:11 Temperature 98.2 F Pulse Rate 79 Respiratory Rate 14 Blood Pressure 129/60 Pulse Oximetry 98 Oxygen Delivery Method Room Air BMI result Body Mass Index 33.4 Const General: cooperative, healthy appearing, comfortable and no acute distress Orientation/consciousness: patient oriented x3 Limitations: no limitations HENMT Head: Yes normal to inspection Ears: hearing grossly normal bilaterally and TM's normal bilaterally General nose exam: Normal external nose present Face and sinus: Yes normal facial exam Mouth: Normal oral and palatal mucosa present Throat: Yes posterior oropharynx normal, Yes tonsils normal and Yes uvula midline Eyes General: appearance normal, both eyes and all related structures Pupils: Equal, round and reactive pupils present Neck Neck: Yes normal visual inspection, Yes full ROM, Yes no lymphadenopathy and Yes no meningeal signs Chest Chest palpation & inspection: normal inspection of the chest Resp Effort & Inspection: normal respiratory effort Auscultation: clear to auscultation bilaterally Cardio Rate: regular rate Rhythm: regular rhythm Peripheral pulses: Peripheral pulses 2+ throughout GI Inspection: Yes normal to inspection Palpation (GI): Soft to palpation and nontender Auscultation: normal bowel sounds Back/Spine/Pelvis Thoracic/Lumbar Spine: thoracic and lumbar spine normal to inspection Skin General skin exam: no rashes or lesions noted Neuro General: patient oriented x3, no meningeal signs, no focal motor deficits and normal sensation to monofilament Cranial nerves: Yes Equal, round and reactive pupils present Cognition (Neuro): normal cognition Speech: No Abnormal speech present Gait exam (Neuro): Normal gait present Motor exam (neuro): 5/5 motor strength present throughout Extrem General: Yes normal to inspection Course Course Course Narrative: RME- 22-year-old female presents for evaluation of a cough for the last week as well as intermittent left lower abdominal pain. Plan for chest x-ray, viral swab, UA and test. Medical Decision Making Medical Decision Making [facility] Narrative: 22-year-old female previously healthy here with complaints of dry cough, sore throat and congestion for 1 week. Patient denies recent sick contacts or travel. She denies any difficulty breathing, chest pain, fevers, chills, headache, neck pain, neck stiffness, vomiting or diarrhea. Patient also complaining of left lower abdominal pain which she has had for 2 weeks. She denies any associated urinary symptoms, fevers, vomiting, diarrhea, vaginal discharge. She has no concern for STD. Denies any new sexual partners. Her last menstrual cycle was 2 weeks ago. Patient with URI symptoms. Posterior oropharynx is normal. Lungs are clear. Vitals are stable. Likely viral. Will review COVID screen and chest x-ray ordered from triage Patient mild tenderness the left lower quadrant with no rebound or guarding. Her UA shows no signs of infection in her urine is negative. 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 She is aware that she may have intra-abdominal pathology which includes but not limited to diverticulitis, appendicitis, ovarian cyst, PID. she tells me that she will return if able later today or follow-up with her primary care doctor outpatient. Differential Diagnosis Differential Diagnoses: The differential diagnosis associated with the presentation includes URI, viral syndrome exam not consistent with strep pharyngiis see MDM above for additional insight Admission/Observation Consideration of admission/observation: Escalation of care including admission/observation considered Lab Data [facility] Lab Attestation statement: I reviewed the patient's lab results. Labs: Lab Results 04/09/23 04/09/23 Range/Units 14:20 15:51 Urine Color Yellow Urine Appearance Clear Urine pH 6.5 (5.0-9.0) Ur Specific [place] 1.020 (1.005-1.025) Urine Protein Negative (Neg-Trace) mg/dL Urine Glucose (UA) Negative (Negative) mg/dL Urine Ketones Negative (Negative) mg/dL Urine Blood Negative (Negative) Urine Nitrite Negative (Negative) Ur Leukocyte Esterase Negative (Negative) Urine RBC 0-2 (0-2) /HPF Urine WBC 0-5 (0-5) /HPF Ur Squamous Epith Cells 0-2 (0-2) /HPF Urine Bacteria None Seen (None Seen) Hyaline Casts 0-2 (0-2) /LPF Urine Test NEGATIVE (NEGATIVE) COVID-19 (DOLLY) Negative (Negative) COVID-19 Clin Com See Note Independent Interpretation I performed an independent interpretation of an: Plain X-Ray Interpretation: I independently reviewed the x-ray and agree with the radiology report Radiology Impression Discussion of test interpretation with radiology: I have reviewed the radiologist's reading. Radiologist Impression: [place] [id number] XRay Report Signed Patient: Tati Ha MR#: [id number] : 2000 Acct:[id number] Age/Sex: 22 / F ADM Date: 04/09/23 Loc: .ED Attending Dr: Ordering Physician: Jesus Yang Date of Service: 04/09/23 Procedure(s): XR chest 2V Accession Number(s): [id number] cc: Jesus Yang ; Physician,None ~ EXAMINATION: XR CHEST CLINICAL INFORMATION: Cough COMPARISON: None available. TECHNIQUE: 2 views of the chest were obtained. FINDINGS: No significant abnormality is noted involving the heart, lungs, mediastinum, bony thorax or soft tissues. XR/XR chest 2V IMPRESSION: Unremarkable examination. Tests considered The following testing was considered but not selected: labs, pelvic US or CT A?P- not completed as patient refused Discharge Plan Discharge Clinical Impression: Abdominal pain, Acute viral syndrome Patient Disposition: Home, Self-Care Instructions: Viral Syndrome (ED), Abdominal Pain (ED) Additional Instructions: your COVID test is negative. Your chest x-ray is still pending. You do have abdominal pain we recommended that you stay for imaging and lab work but you declined this due to childcare issues. You are welcome to return at any time. You may also follow-up with her primary care doctor Prescriptions: No Action cyclobenzaprine 10 mg tablet 10 mg PO TID PRN (Reason: muscle spasm) Qty: 14 0RF lidocaine 4 % adhesive patch,medicated 1 patch topical DAILY PRN (Reason: pain) Qty: 10 0RF Rx Instructions: may leave on for up to 12 hrs ibuprofen 600 mg tablet 600 mg PO Q6H PRN (Reason: pain) Qty: 30 0RF erythromycin 5 mg/gram (0.5 %) ointment 1 appl ophthalmic-Left BID 7 Days Qty: 3.5 0RF cefdinir 300 mg capsule 300 mg PO BID 7 Days Qty: 14 0RF tobramycin 0.3 % drops 2 drp ophthalmic (eye) Q4H 7 Days Qty: 5 0RF Referrals: Physician,None [Primary Care Provider] - 10 days Interventions: ED Discharge Assessment Last Done: 04/09/23 16:38 Discharge Date/Time: 04/09/23 16:38
[2023-04-09 14:56] LABS: COVID-19 Test Negative (Negative); IDNOW Serial# 55D5AD1C
[2023-04-09 15:58] LABS: Appearance Urine Clear; Color Urine Yellow; Glucose Urine UA Negative (Negative); Leukocyte Esterase Urine Negative (Negative); Nitrite Urine Negative (Negative); PH 6.5 (5.0-9.0); Urine Blood Negative (Negative); Urine Ketones Negative (Negative); Urine Protein Negative (Neg-Trace)
[2023-04-09 15:59] LABS: UPreg QC Valid YES; Urine Pregnancy NEGATIVE (NEGATIVE)
[2023-04-09 16:03] LABS: Bacteria Urine None Seen (None Seen); Hyaline Casts Urine 0-2 /LPF (0-2); RBC Urine 0-2 /HPF (0-2); Squamous Epithelial Cell Urine 0-2 /HPF (0-2); WBC Urine 0-5 /HPF (0-5)
--- NOTE | 2023-04-09 16:37 | PC.NURSE ---
Pt d/c by provider d/t nurse being in another room. Provider advised pt to stay for further testing however patient needed to go d/t director maternal child issues
== END 2023-04-09 16:38 | disposition home or self-care (01) ==
PROVIDERS: Physician Assistant; Emergency Provider Emergency Medicine
DX: B34.9 Viral infection, unspecified (principal); R05.9 Cough, unspecified; R10.32 Left lower quadrant pain; Z11.52 Encounter for screening for COVID-19
CPT/HCPCS: 71046; 81001; 81025; 87635; 99282; 99283

== ENCOUNTER 2023-06-12 06:08 | Emergency (ER) | payer OTHER, SELFPAY ==
[2023-06-12 06:08] VITALS: BP 98/63; PULSE 68; RESP 18; TEMP 36.8; O2SAT 98; BMI 33.6
--- NOTE | 2023-06-12 08:08 | ED.DENTAL ---
HPI - Dental/Oral General Chief complaint: Dental/Oral Stated complaint: Dental pain Time Seen by Provider: 06/12/23 07:41 Source: patient Mode of arrival: ambulatory Limitations: no limitations History of Present Illness MD Complaint: tooth pain Location: Tooth # (16) Onset (ago): day(s) (2) Duration: constant Severity: moderate Relieving factors: nothing Exacerbating factors: chewing, cold and heat Context: other (known impacted wisdom teeth) Treatment prior to arrival: oral analgesic Related Data Previous Rx's Medication Instructions Recorded cyclobenzaprine 10 mg tablet 10 mg PO TID PRN muscle spasm #14 07/11/21 tabs ibuprofen 600 mg tablet 600 mg PO Q6H PRN pain #30 tabs 07/11/21 lidocaine 4 % topical patch 1 patch topical DAILY PRN pain #10 07/11/21 ea erythromycin 5 mg/gram (0.5 %) eye 1 appl ophthalmic-Left BID 7 days 06/27/22 ointment #3.5 grams cefdinir 300 mg capsule 300 mg PO BID 7 days #14 caps 09/18/22 tobramycin 0.3 % eye drops 2 drp ophthalmic (eye) Q4H 7 days 11/19/22 #5 mL cefuroxime axetil 500 mg tablet 500 mg PO BID 7 days #14 tabs 06/12/23 ibuprofen 600 mg tablet 600 mg PO Q6H PRN pain #30 tabs 06/12/23 tramadol 50 mg tablet 50 mg PO Q8H PRN pain #10 tabs 06/12/23 Allergies Allergy/AdvReac Type Severity Reaction Status Date / Time Penicillins [PENICILLINS] Allergy Intermediate RASH Verified 06/12/23 06:12 Review of Systems Review of Systems: Constitutional : No Fever, No Chills ENT/Mouth : No swallowing difficulty, no change in voice, positive dental pain, positive jaw pain, no facial swelling Eyes: No Eye Pain, No Swelling Cardiovascular : No Chest Pain, No SOB Respiratory : No Cough, No Sputum Gastrointestinal : No Nausea, No Vomiting, No Diarrhea Genitourinary : No Dysuria Musculoskeletal : No Myalgias Skin : No rash Neuro : No Weakness, No Numbness, No Headache PMFSH Past Medical History Attestation statement: The following information was validated with the patient. Source: old records reviewed Medical History No known health problems Social History Social History Alcohol intake: current Alcohol intake frequency: holidays/special occasions only Patient Tobacco Use Status: Never used Tobacco Advance Directives: No Physical Exam Vital Signs: Vital Signs: Last Vital Signs Temp 98.2 F 06/12/23 06:08 Pulse 68 06/12/23 06:08 Resp 18 06/12/23 06:08 BP 98/63 06/12/23 06:08 Pulse Ox 98 06/12/23 06:08 O2 Del Method Room Air 06/12/23 06:08 BMI result Body Mass Index 33.6 Appearance: Alert. Oriented X3. No acute distress. Eyes: Pupils equal, round and reactive to light. ENT: Pharynx normal. 4 impacted wisdom tooth no trismus no abscess noted no facial swelling Neck: Normal inspection. Neck supple. CVS: Normal heart rate and rhythm. Pulses normal. Respiratory: No respiratory distress. Breath sounds normal. Abdomen: Soft and nontender. Skin: Skin warm and dry. Normal skin color. Extremities: No lower extremity edema. Neuro: Oriented X 3. No motor deficit. No sensory deficit. Medical Decision Making Medical Decision Making MDM Narrative: 23 yo female no sig PMH not , no hx of seizures chronic impacted wisdom tooth now here with dental pain no signs of abscess no trismus no fevers no concern for deeper space infection at this time will start on ceftin has tolerated PCN before, ibuprofen, tramadol and refer to dentist. Differential Diagnosis Differential Diagnoses: The differential diagnosis associated with the presentation includes abscess, toothache, impacted wisdom tooth External Record Review External record reviewed: Inpatient record Prescription Management I considered prescription management with: Pain Medication and Antibiotic Discharge Plan Discharge Clinical Impression: Toothache Patient Disposition: Home, Self-Care Instructions: Toothache (ED) Additional Instructions: take antibiotics as prescribed return for facial swelling, fevers or no improvement please see a dentist as soon as possible On a cephalosporin?antibiotic, softer bowel movements are to be expected. Call your provider if you move your bowels more than 4 times a day, your bowel movements are almost all liquid, or you get a rash.?? Prescriptions: New ibuprofen 600 mg tablet 600 mg PO Q6H PRN (Reason: pain) Qty: 30 0RF cefuroxime axetil 500 mg tablet 500 mg PO BID 7 Days Qty: 14 0RF tramadol 50 mg tablet 50 mg PO Q8H PRN (Reason: pain) Qty: 10 0RF No Action cyclobenzaprine 10 mg tablet 10 mg PO TID PRN (Reason: muscle spasm) Qty: 14 0RF lidocaine 4 % adhesive patch,medicated 1 patch topical DAILY PRN (Reason: pain) Qty: 10 0RF Rx Instructions: may leave on for up to 12 hrs ibuprofen 600 mg tablet 600 mg PO Q6H PRN (Reason: pain) Qty: 30 0RF erythromycin 5 mg/gram (0.5 %) ointment 1 appl ophthalmic-Left BID 7 Days Qty: 3.5 0RF cefdinir 300 mg capsule 300 mg PO BID 7 Days Qty: 14 0RF tobramycin 0.3 % drops 2 drp ophthalmic (eye) Q4H 7 Days Qty: 5 0RF Stand Alone Forms: Work/School Release
== END 2023-06-12 08:28 | disposition home or self-care (01) ==
PROVIDERS: Emergency Provider Emergency Medicine
DX: K08.89 Other specified disorders of teeth and supporting structures (principal); Z79.899 Other long term (current) drug therapy
CPT/HCPCS: 99282; 99283

== ENCOUNTER 2023-09-26 22:11 | Emergency (ER) | payer OTHER, SELFPAY ==
[2023-09-26 22:14] VITALS: BP 116/61; PULSE 102; RESP 18; TEMP 37.3; O2SAT 97; BMI 33.2
--- NOTE | 2023-09-26 22:29 | MHC.EDTECH ---
Patient brought into triage area,labs,sars/flu/rsv,strep.and urine obtained and sent to lab.
[2023-09-26 22:34] LABS: MANUAL DIFF FLAG NO
[2023-09-26 22:36] LABS: Appearance Urine Clear; Basophils Percent Auto 0.2 % (0-2); Color Urine Yellow; Eosinophils Absolute Auto 0.2 X10*3/uL (0.0-0.4); Glucose Urine UA Negative (Negative); Hematocrit 36.4 % (37.0-47.0); Hemoglobin 12.4 g/dl (12.0-16.0); Imm Gran Abs Auto 0.03 X10*3/uL (0.00-0.03); Imm Gran Pct Auto 0.4 % (0.0-0.4); Leukocyte Esterase Urine Large (3+) (Negative); Lymphocytes Percent Auto 24.9 % (20-40); Mean Corpuscular HGB Conc 34.1 g/dl (31.0-35.0); Mean Corpuscular Hemoglobin 27.6 pg (27.0-33.0); Mean Corpuscular Volume 81.1 fL (80.0-98.0); Mean Platelet Volume 9.8 fL (9.4-12.3); Monocytes Absolute Auto 1.2 X10*3/uL (0.1-1.2); Monocytes Percent Auto 14.6 % (2-11); Neutrophils Absolute Auto 4.7 x10*3/uL (2.0-8.3); Neutrophils Percent Auto 57.9 % (45-73); Nitrite Urine Negative (Negative); Platelet Count 251 X10*3/uL (160-400); Red Blood Count 4.49 X10*6/uL (4.20-5.50); Red Cell Distribution Width 13.3 % (11.0-16.0); Specific Gravity - Urine 1.015 (1.005-1.025); UMIC TRIGGER UACC YES; Urine Blood Negative (Negative); Urine Ketones Negative (Negative); Urine Protein Negative (Neg-Trace); White Blood Count 8.2 X10*3/uL (4.8-10.8)
[2023-09-26 22:42] LABS: IDNOW Serial# 6674DD1D; Strep A Nucleic Acid Negative (Negative)
[2023-09-26 22:55] LABS: Alanine Aminotransferase 33 U/L (0-31); Albumin Level 4.1 g/dL (3.5-5.0); Alkaline Phosphatase 75 U/L (39-117); Anion Gap 14 (12-20); Aspartate Amino Transferase 22 U/L (5-31); Bilirubin Total 0.3 mg/dL (0.0-1.0); Blood Urea Nitrogen 6 mg/dL (9-16); Calcium 9.1 mg/dL (8.4-10.2); Carbon Dioxide 22 mmol/L (22-29); Chloride 105 mmol/L (96-108); Creatinine Clr Calc Pharmacy 131.6; Estimated Glomerular Filt Rate > 60; Glucose Random 110 mg/dL (60-115); Potassium 3.1 mmol/L (3.3-5.1); Sodium 138 mmol/L (135-145); Total Protein 7.2 g/dL (6.5-8.0)
[2023-09-26 23:00] LABS: Bacteria Urine None Seen (None Seen); Hyaline Casts Urine 0-2 /LPF (0-2); RBC Urine 0-2 /HPF (0-2); UACC Culture Trigger YES; WBC Urine 0-5 /HPF (0-5)
[2023-09-26 23:13] LABS: Influenza A PCR NEGATIVE (Negative); Influenza B PCR NEGATIVE (Negative); Resp Syncy Virus RNA Qual PCR NEGATIVE (Negative); SARS COV2 PCR INHOUSE NEGATIVE (Negative)
--- NOTE | 2023-09-27 | ECG_ITS ---
Test Reason : CHEST PAIN Blood Pressure : / mmHG Vent. Rate : 084 BPM Atrial Rate : 084 BPM P-R Int : 166 ms QRS Dur : 080 ms QT Int : 378 ms P-R-T Axes : 042 021 018 degrees QTc Int : 446 ms Normal sinus rhythm Normal ECG When compared with ECG of 15-FEB-2017 22:21, No significant change was found Referred By: Generic ED Physician Electronically Signed By:ZONIA DUVAL
[2023-09-27 00:44] VITALS: BP 115/68; PULSE 99; RESP 18; TEMP 37.2; O2SAT 95
[2023-09-27 02:56] VITALS: PULSE 98; RESP 20; O2SAT 98
--- NOTE | 2023-09-27 02:56 | PC.NURSE ---
pt now reporting cp. pt reports she feels sore and relates it to her excessive coughing. ekg ordered. provider aware.
--- NOTE | 2023-09-27 03:11 | ED.GENADULT ---
HPI - General Adult General Chief complaint: General Medical Stated complaint: stuffy nose,dry cough Time Seen by Provider: 09/27/23 03:11 Source: patient Mode of arrival: ambulatory Limitations: no limitations History of Present Illness HPI narrative: 23-year-old female LMP 06/28/2023, 9 weeks 4 days prior by dates who presents emergency department for evaluation of nonproductive cough, rhinorrhea shortness of breath, pleuritic chest pain. Patient has been sick for approximately 2 days. She states that her symptoms have gotten significantly worse. She states that she is having [id number] pain in the center of her chest which is worse with breathing and worse with coughing. The denied abdominal pain, she states she had an ultrasound in the beginning her and was told that was normal. She is getting her care through [facility]. She states she has had urinary frequency but no dysuria. She denied vaginal discharge or vaginal bleeding Related Data Previous Rx's ?Medication ?Instructions ?Recorded cyclobenzaprine 10 mg tablet 10 mg PO TID PRN muscle spasm #14 07/11/21 tabs ibuprofen 600 mg tablet 600 mg PO Q6H PRN pain #30 tabs 07/11/21 lidocaine 4 % topical patch 1 patch topical DAILY PRN pain #10 07/11/21 ea erythromycin 5 mg/gram (0.5 %) eye 1 appl ophthalmic-Left BID 7 days 06/27/22 ointment #3.5 grams cefdinir 300 mg capsule 300 mg PO BID 7 days #14 caps 09/18/22 tobramycin 0.3 % eye drops 2 drp ophthalmic (eye) Q4H 7 days 11/19/22 #5 mL cefuroxime axetil 500 mg tablet 500 mg PO BID 7 days #14 tabs 06/12/23 ibuprofen 600 mg tablet 600 mg PO Q6H PRN pain #30 tabs 06/12/23 tramadol 50 mg tablet 50 mg PO Q8H PRN pain #10 tabs 06/12/23 acetaminophen 500 mg tablet 1,000 mg (2 x 500 mg) PO Q6H PRN 09/27/23 (Tylenol Extra Strength) fever or pain #20 tabs azithromycin 250 mg tablet See Rx Instructions PO .COMPLEX #6 09/27/23 (Zithromax Z-Cristo) tabs Allergies Allergy/AdvReac Type Severity Reaction Status Date / Time Penicillins [PENICILLINS] Allergy Intermediate RASH Verified 09/26/23 22:18 Review of Systems Review of Systems: Yes all other systems are reviewed and are negative [facility] Past Medical History [facility] Narrative: Social history: She denies tobacco, alcohol and drug use Medical History No known health problems Social History Social History Alcohol intake: current Alcohol intake frequency: holidays/special occasions only Patient Tobacco Use Status: Never used Tobacco Advance Directives: No Advance Directives Information Provided: Yes Physical Exam ED Vital Signs: Vital Signs - 24 hr 09/26/23 22:14 09/27/23 00:44 09/27/23 02:56 Temperature 99.1 F 98.9 F Pulse Rate 102 H 99 98 Respiratory Rate 18 18 20 Blood Pressure 116/61 115/68 Pulse Oximetry 97 95 98 Oxygen Delivery Method Room Air Room Air Room Air BMI result Body Mass Index 33.2 Vital signs were normal Exam: General: Awake, alert in no distress Head: Normocephalic, atraumatic EENT: PERRL, Lids normal, sclera normal, conjunctiva normal, nose normal , ears normal, throat without erythema or exudates Neck: Supple, no adenopathy Lung: breath sounds symmetric, no wheezing, rales or rhonchi Chest: symmetric movement, nontender Heart: regular rate and rhythm, normal S1, S2 no murmurs or rubs Abdomen: soft, non-tender, nondistended, normal bowel sounds Back: no vertebral tenderness, no CVAT Extremities: no deformities, moves all extremities symmetrically Neuro: Awake, alert, oriented, normal speech, cranial nerves intact, moves all extremities symmetrically Psych: Pleasant, cooperative Medical Decision Making Medical Decision Making [facility] Narrative: 23-year-old female LMP 06/28/2023, 9 weeks 4 days prior by dates who presents emergency department for evaluation of nonproductive cough, rhinorrhea shortness of breath, pleuritic chest pain x2 days. Vital signs were normal. Physical examination was unremarkable. Differential diagnosis: ?Includes but is not limited to pneumonia, bronchitis, COVID-19, influenza, RSV, electrolyte abnormalities, anemia Following evaluation was ordered: CBC, CMP, urinalysis, quantitative beta-hCG, rapid strep, COVID-19, influenza, RSV Patient was initially treated with the following: Azithromycin 500 mg orally, Tylenol 975 mg orally Course: 03:33 My interpretation patient's laboratory evaluation as follows: CBC was normal. Potassium low 3.1. ALT elevated 33. COVID-19, influenza and RSV were negative. Rapid strep negative. Quantitative beta-hCG in the appropriate range given her gestational age- 89,422. Patient's symptoms are consistent with acute bronchitis. Patient was given a prescription for Zithromax Z-Cristo, given her 1st dose here in the emergency department and Tylenol 1000 mg every 6 hours as needed fever. She was given printed and verbal instructions discharged home Admission/Observation Consideration of admission/observation: Escalation of care including admission/observation considered Lab Data MDM Lab Attestation statement: I reviewed the patient's lab results. 09/26/23 22:28 09/26/23 22:28 Labs: Lab Results 09/26/23 Range/Units 22:28 WBC 8.2 (4.8-10.8) X10*3/uL RBC 4.49 (4.20-5.50) X10*6/uL Hgb 12.4 (12.0-16.0) g/dl Hct 36.4 L (37.0-47.0) % MCV 81.1 (80.0-98.0) fL MCH 27.6 (27.0-33.0) pg MCHC 34.1 (31.0-35.0) g/dl RDW 13.3 (11.0-16.0) % Plt Count 251 (160-400) X10*3/uL MPV 9.8 (9.4-12.3) fL Immature Gran % (Auto) 0.4 (0.0-0.4) % Neut % (Auto) 57.9 (45-73) % Lymph % (Auto) 24.9 (20-40) % [place] % (Auto) 14.6 H (2-11) % Eos % (Auto) 2.0 (0-4) % Baso % (Auto) 0.2 (0-2) % Lymph # (Auto) 2.0 (1.2-4.9) X10*3/uL [place] # (Auto) 1.2 (0.1-1.2) X10*3/uL Eos # (Auto) 0.2 (0.0-0.4) X10*3/uL Baso # (Auto) 0.0 (0.0-0.2) X10*3/uL Abs Immat Gran (auto) 0.03 (0.00-0.03) X10*3/uL Absolute Neuts (auto) 4.7 (2.0-8.3) x10*3/uL Absolute Nucleated RBC 0.000 (0.0-0.012) X10*3/uL Nucleated RBC % (auto) 0.0 (0.0-0.2) /100WBC Sodium 138 (135-145) mmol/L Potassium 3.1 L (3.3-5.1) mmol/L Chloride 105 (96-108) mmol/L Carbon Dioxide 22 (22-29) mmol/L Anion Gap 14 (12-20) BUN 6 L (9-16) mg/dL Creatinine 0.61 (0.5-1.4) mg/dL Estim Creat Clear Calc 131.6 Estimated GFR > 60 Random Glucose 110 (60-115) mg/dL Calcium 9.1 (8.4-10.2) mg/dL Total Bilirubin 0.3 (0.0-1.0) mg/dL AST 22 (5-31) U/L ALT 33 H (0-31) U/L Alkaline Phosphatase 75 (39-117) U/L Total Protein 7.2 (6.5-8.0) g/dL Albumin 4.1 (3.5-5.0) g/dL Beta HCG, Quant 96218 mIU/mL Urine Color Yellow Urine Appearance Clear Urine pH 7.0 (5.0-9.0) Ur Specific [place] 1.015 (1.005-1.025) Urine Protein Negative (Neg-Trace) mg/dL Urine Glucose (UA) Negative (Negative) mg/dL Urine Ketones Negative (Negative) mg/dL Urine Blood Negative (Negative) Urine Nitrite Negative (Negative) Ur Leukocyte Esterase Large (3+) H (Negative) Urine RBC 0-2 (0-2) /HPF Urine WBC 0-5 (0-5) /HPF Ur Squamous Epith Cells 3-5 (0-2) /HPF Urine Bacteria None Seen (None Seen) Hyaline Casts 0-2 (0-2) /LPF Influenza Type A (PCR) NEGATIVE (Negative) Influenza Type B (PCR) NEGATIVE (Negative) RSV RNA Qual (PCR) NEGATIVE (Negative) SARS-CoV-2 RNA (RT-PCR) NEGATIVE (Negative) S. pyogenes GrpA KORI Negative (Negative) Independent Interpretation I performed an independent interpretation of an: EKG Interpretation: My independent interpretation patient's 12 EKG done at 03:03 hours is as follows: Normal sinus rhythm rate of 84, normal IA interval, QRS duration and QTC interval, no ST segment elevation, no ST segment depression, inverted T-wave in lead 3 and V1, no PACs, no PVCs-this is a normal EKG Prescription Management I considered prescription management with: Pain Medication and Antibiotic Chronic Conditions Patient?s care impacted by: Other () Discharge Plan Discharge Clinical Impression: Acute bronchospasm Patient Disposition: Home, Self-Care Instructions: Acute Bronchitis (ED) Additional Instructions: Your are consistent with bronchitis. Take Zithromax (azithromycin) Z-Cristo as prescribed. Day 1 take 2 pills, each day after that take 1 pill for total of 5 days. This medication states in your system for 7-10 days and continues to work despite only taking it for 5 days. You were given a dose here in the emergency department, take your next dose Wednesday09/28/2023 in the morning. Take Tylenol (acetaminophen) 500 mg pills, 2 pills every 6 hours as needed for pain or fever. Follow-up with your doctor in 2 days. Please return to the emergency department if your symptoms get worse or if you develop any symptoms that are concerning to you. Prescriptions: New azithromycin [Zithromax Z-Cristo] 250 mg tablet See Rx Instructions .ROUTE .COMPLEX Qty: 6 0RF Rx Instructions: take 500 mg today (day 1), then 250 mg for 4 days (days 2-5) acetaminophen [Tylenol Extra Strength] 500 mg tablet 1,000 mg PO Q6H PRN (Reason: fever or pain) Qty: 20 0RF No Action cyclobenzaprine 10 mg tablet 10 mg PO TID PRN (Reason: muscle spasm) Qty: 14 0RF lidocaine 4 % adhesive patch,medicated 1 patch topical DAILY PRN (Reason: pain) Qty: 10 0RF Rx Instructions: may leave on for up to 12 hrs ibuprofen 600 mg tablet 600 mg PO Q6H PRN (Reason: pain) Qty: 30 0RF erythromycin 5 mg/gram (0.5 %) ointment 1 appl ophthalmic-Left BID 7 Days Qty: 3.5 0RF cefdinir 300 mg capsule 300 mg PO BID 7 Days Qty: 14 0RF tobramycin 0.3 % drops 2 drp ophthalmic (eye) Q4H 7 Days Qty: 5 0RF ibuprofen 600 mg tablet 600 mg PO Q6H PRN (Reason: pain) Qty: 30 0RF cefuroxime axetil 500 mg tablet 500 mg PO BID 7 Days Qty: 14 0RF tramadol 50 mg tablet 50 mg PO Q8H PRN (Reason: pain) Qty: 10 0RF Print Language: Com[place]
[2023-09-27 03:34] VITALS: BP 116/69; PULSE 92; RESP 16; TEMP 36.8; O2SAT 98
[2023-09-27] MEDS: Azithromycin 500 MG TABLET PO (03:42)
[2023-09-27] MEDS: Acetaminophen 325 MG TABLET 975 MG PO (03:42)
[2023-09-27 03:49] VITALS: BP 116/69; PULSE 92; RESP 16; TEMP 36.8; O2SAT 98
== END 2023-09-27 03:49 | disposition home or self-care (01) ==
PROVIDERS: Emergency Provider Emergency Medicine Emergency Medical Services
DX: O99.511 Diseases of the respiratory system complicating pregnancy, first trimester (principal); J98.01 Acute bronchospasm; Z3A.09 9 weeks gestation of pregnancy; Z88.0 Allergy status to penicillin
CPT/HCPCS: 0241U; 80053; 81001; 84702; 85025; 87086; 87651; 93005; 99283; 99284

== ENCOUNTER → 2023-09-27 03:03 | Outpatient (BNV) | payer OTHER, SELFPAY | PROVIDERS: Emergency Provider Emergency Medicine Emergency Medical Services; Visit Provider Internal Medicine | DX: R07.9 Chest pain, unspecified (principal) | CPT/HCPCS: 93010 ==